=== PATIENT | male | born 1945 | race Caucasian/White ===

== ENCOUNTER 2016-11-15 11:42 | Emergency (ER) | payer MEDICARE, OTHER ==
[~2016-11-15] VITALS: Ht 177.8 cm; Wt 102.1 kg
[2016-11-15] MEDS ORDERED: SPIR1CAP (11:53)
[2016-11-15] MEDS ORDERED: MONTELUKAST (11:53)
[2016-11-15] MEDS ORDERED: ADV250INH (11:53)
[2016-11-15] MEDS ORDERED: LISINOP/HCTZ (11:53)
[2016-11-15 12:36] LABS: BASO % 0.2 % (0.0-1.0); EOS % 0.3 % (0.0-3.0); LARGE UNSTAINED CELL # 0.2 K/mm3 (0.0-0.4); LYMPH # 0.8 K/mm3 (1.5-4.5); LYMPH % 4.6 % (24.0-44.0); MEAN CORPUSCULAR HEMOGLOBIN 27.6 pg (27.0-33.0); MEAN CORPUSCULAR HGB CONC 33.2 g/dl (32.0-36.5); MEAN CORPUSCULAR VOLUME 83.4 fl (80.0-96.0); MONO # 0.8 K/mm3 (0.0-0.8); MONO % 4.6 % (0.0-5.0); NEUTROPHILS # 14.8 K/mm3 (1.8-7.7); NEUTROPHILS % 89.3 % (36.0-66.0); PLATELET COUNT, AUTOMATED 327 k/mm3 (150-450); RED CELL DISTRIBUTION WIDTH 12.5 % (11.5-14.5); WHITE BLOOD COUNT 16.5 K/mm3 (4.0-10.0)
[2016-11-15 12:53] LABS: ALBUMIN 3.4 GM/DL (3.2-5.2); ALBUMIN/GLOBULIN RATIO 0.83 (1.00-1.93); ALKALINE PHOSPHATASE 66 U/L (45-117); ALT/SGPT 21 U/L (12-78); ANION GAP 10 MEQ/L (8-16); AST/SGOT 14 U/L (15-37); BILIRUBIN,DIRECT 0.2 MG/DL (0.0-0.2); BILIRUBIN,TOTAL 0.6 MG/DL (0.2-1.0); BLOOD UREA NITROGEN 23 MG/DL (7-18); CALCIUM LEVEL 9.2 MG/DL (8.8-10.2); CARBON DIOXIDE LEVEL 26 MEQ/L (21-32); CHLORIDE LEVEL 97 MEQ/L (98-107); CREATININE FOR GFR 1.07 MG/DL (0.70-1.30); GLOMERULAR FILTRATION RATE > 60.0 (>42); GLUCOSE, FASTING 111 MG/DL (83-110); POTASSIUM SERUM 4.5 MEQ/L (3.5-5.1); SODIUM LEVEL 133 MEQ/L (136-145); TOTAL PROTEIN 7.5 GM/DL (6.4-8.2)
[2016-11-15] MEDS ORDERED: ISOVUE-370 76% 100ML VIAL (Q9967) As Ordered ONE (13:00)
[2016-11-15] MEDS ORDERED: CLINDAMYCIN 600 MG in APPROPRIATE DILUENT 1 EA IV ONE (13:45)
[2016-11-15] MEDS ORDERED: methylPREDNISolone INJ 125 MG/2 ML VIAL (J2930) IV ONE (13:45)
--- NOTE | 2016-11-15 15:01 | REP ---
CT SOFT-TISSUE NECK WITH CONTRAST: 11/15/2016 CLINICAL HISTORY: Swelling in throat, evaluate for abscess. No comparison study. TECHNIQUE: The patient received 75 mL of Isovue 370 and scanning through the neck with coronal and sagittal reconstructions. FINDINGS: [employer] image shows the airway deviated towards the left in the neck. Soft tissue images show an abscess cavity 3 x 2.5 x 2.2 cm involving the right tonsil and peritonsillar region. Extensive edema enhancement around this and extending upward into the adenoid pad in the prevertebral space and inferiorly to efface the right valleculae and portion of the piriform sinus. No abscess or enlargement of the left tonsil. Thickening of the prevertebral tissues on the right side only. Nasopharyngeal airway is slightly narrowed due to edema enhancement of the uvula. The oropharynx and hypopharynx are grossly patent. There is effacement of the right piriform sinus as well. Small nodes in the anterior and posterior cervical chain noted. Bilateral submandibular and parotid glands without mass or acute finding. Tongue base intact. The bone windows show the cervical spondylosis from C4-5 through C6-7 compression deformity. The posterior elements and central canal are intact. The hyoid bone mandible skull base, mastoids and visualized sinuses clear. Upper thoracic vertebral levels and visualized ribs, lung apices and medial clavicles grossly intact. Thyroid lobes symmetric. No supraclavicular mass. IMPRESSION: 1. There is a tonsillar/peritonsillar abscess on the right side with the abscess cavity measuring 3 x 2.5 x 2.2 cm. Surrounding enhancement and edema of the right tonsil and peritonsillar soft tissues into the prevertebral region upward towards the adenoids, uvula and inferiorly to efface the right valleculae and partially the right piriform sinus. No left tonsillar abscess or enlargement. 2. A few scattered nodes but not any pathologic sized adenopathy. 3. Submandibular glands, parotid glands. Thyroid lobes unremarkable. Bones without acute finding. No other significant abnormality. Signed by Lj Cardenas MD 11/15/2016 04:19 P
[2016-11-15 15:39] LABS: INR 1.15
[2016-11-15] MEDS ORDERED: CETACAINE SPRAY 20GM (FLOOR STOCK) As Ordered ONE (16:43)
[2016-11-15] MEDS ORDERED: LIDOCAINE W/EPINEPHRINE 1% 20ML VIAL As Ordered ONE (16:43)
[2016-11-15] MEDS ORDERED: CLIN1CAP5 PO (17:23)
[2016-11-15] MEDS ORDERED: PRED50TA PO (17:25)
[2016-11-15 18:22] VITALS: BP 107/75
--- NOTE | 2016-11-16 08:46 | ECGEPIP ---
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
== END 2016-11-15 18:37 | disposition home or self-care (01) ==
LOC: M ED 12:14
DX: J36 Peritonsillar abscess (principal); J44.9 Chronic obstructive pulmonary disease, unspecified; Z79.899 Other long term (current) drug therapy; Z88.0 Allergy status to penicillin; Z87.891 Personal history of nicotine dependence
CPT/HCPCS: 36415; 70491; 80048; 80076; 83605; 85025; 85610; 85730; 87040; 93005; 93041; 94760; 96374; 96375; 99285; J2930; Q9967

== ENCOUNTER → 2017-01-04 | Outpatient (CLI) | payer MEDICARE, OTHER ==
[~2017-01-04] MED LIST: ADV250INH; CLIN1CAP5 PO; LISINOP/HCTZ; MONTELUKAST; PRED50TA PO; SPIR1CAP
== END ==
LOC: M SMT 09:57
PROVIDERS: ATTEND Nurse Practitioner Family
DX: Z12.5 Encounter for screening for malignant neoplasm of prostate (principal)
CPT/HCPCS: 36415; 51798; G0103; G0463

== ENCOUNTER → 2017-08-20 | Outpatient (CLI) | payer MEDICARE, OTHER | LOC: M SMT PRO 08:21 | DX: R97.20 Elevated prostate specific antigen [PSA] (principal) | CPT/HCPCS: G0416 ==

== ENCOUNTER → 2018-09-15 | Outpatient (CLI) | payer MEDICARE, OTHER ==
[~2018-09-15] MED LIST changes: +CLIN150C14 PO; -CLIN1CAP5 PO
[2018-09-17 14:58] LABS: PSA % FREE 16.1 % (.); PSA FREE 1.11 ng/mL; PSA TOTAL 6.9 ng/mL (0.0-4.0)
== END ==
LOC: M SMT 11:42
PROVIDERS: ATTEND Urology
DX: R97.20 Elevated prostate specific antigen [PSA] (principal)
CPT/HCPCS: 36415; 84154; G0463

== ENCOUNTER → 2019-05-29 | Outpatient (REF) | LOC: M LAB REF 13:24 | PROVIDERS: ATTEND Family Medicine | DX: C44.622 Squamous cell carcinoma of skin of right upper limb, including shoulder (principal) ==

== ENCOUNTER → 2019-06-17 | Outpatient (REF) | payer MEDICARE, OTHER | LOC: M LAB REF 12:07 | PROVIDERS: ATTEND Plastic Surgery Surgery of the Hand | DX: C44.622 Squamous cell carcinoma of skin of right upper limb, including shoulder (principal) ==

== ENCOUNTER → 2019-10-01 | Outpatient (CLI) | payer MEDICARE, OTHER ==
--- NOTE | 2019-10-01 13:17 | REP ---
Low-dose lung screening CT of the chest : Comparison is a whole body PET scan dated 03/11/2014. The study today is performed without IV contrast. The images are presented at lung windowing only. There is a ground-glass density posteriorly in the left upper lobe on image 38 measuring 24 x 14 mm. This is in the location where a spiculated nodule was identified on the comparison PET scan. The spiculated nodule is no longer identified. This ground-glass density is a category III lesion with the probability of malignancy 1% - 2%. 6-month follow-up low-dose lung screening CT is recommended. If There is a 8 mm irregular nodule in the right upper lobe on image 46. This is also a category III lung nodule. There is a 5 mm lung nodule posteriorly in the right lower lobe on image 73. This is a category II lung nodule with the probability of malignancy less than 1%. There are no other lung nodules or masses. There are no infiltrates or pleural effusions. There are numerous bulla throughout the lung pak bilaterally compatible with bullous emphysema. Impression: Category three low-dose lung screening chest CT. The probability of malignancy is 1% - 2%. Follow-up low-dose lung screening CT is recommended in 6 months. Electronically Signed by Dany Oliveira MD 10/01/2019 01:09 P
== END ==
LOC: M RAD 11:06
PROVIDERS: ATTEND Physician Assistant
DX: Z12.2 Encounter for screening for malignant neoplasm of respiratory organs (principal); Z87.891 Personal history of nicotine dependence; J43.1 Panlobular emphysema

== ENCOUNTER → 2022-10-10 | Outpatient (CLI) | payer MEDICARE, OTHER ==
[~2022-10-10] MED LIST changes: -CLIN150C14 PO; +CLIN150C17 PO
== END ==
LOC: M PLARAD 12:01
PROVIDERS: ATTEND Internal Medicine Pulmonary Disease
DX: R91.8 Other nonspecific abnormal finding of lung field (principal); I65.23 Occlusion and stenosis of bilateral carotid arteries; J43.9 Emphysema, unspecified; I70.0 Atherosclerosis of aorta; K42.9 Umbilical hernia without obstruction or gangrene
CPT/HCPCS: 78815; A9552